=== PATIENT | female | born 1965 ===

== ENCOUNTER 2017-05-24 20:21 | Emergency (ER) | payer MEDICAID ==
[2017-05-24 20:39] VITALS: TEMP 98.1
[2017-05-24] MEDS ORDERED: Sodium Chloride 0.9% 1,000 ML IV STA (21:08)
--- NOTE | 2017-05-24 21:14 | ED PDOC ---
Syncope/Near Syncope/Dizziness Time Seen by Provider: 05/24/17 20:41 Chief Complaint (Nursing): Dizziness/Lightheaded Chief Complaint (Provider): dizzness History Per: Patient History/Exam Limitations: no limitations Onset/Duration Of Symptoms: Days, Gradual Current Symptoms Are (Timing): Still Present Current Symptoms: dizziness Associated Symptoms Preceding Syncopal Episode: Lightheadedness, Worse With Standing Seizure Or Post-ictal Symptoms: None Possible Causative Factor(s): New Medications (metronidazol,omeprazol, amoxicillin) Fall Associated With With Symptoms: No Severity: Moderate Additional History Per: Patient Additional Complaint(s): 52 yo female w/ medical history of HTN presents to ED with Dizziness/ lightheadedness for last 5 days after she starting treatment with metronidazole , amoxicillin and omeprazole for 'stomach infection'. Patient states dizziness is intermittent and described as the room spinning around her. Patient denies fever, chill, abdominal pain, chest pain, sob, recent travel, recent illness, diarrhea, vomiting, nausea. Patient states she feels a general overall weakness as well. No other complaints at this time. PMD: Unknown Past Medical History Reviewed: Historical Data, Nursing Documentation, Vital Signs Vital Signs: Last Vital Signs Temp 98.1 F 05/24/17 20:36 Pulse 80 05/24/17 20:36 Resp 20 05/24/17 20:36 BP 145/88 05/24/17 20:36 Pulse Ox 18 L 05/24/17 20:36 - Medical History PMH: HTN - Surgical History Surgical History: Cholecystectomy - Family History Family History: States: Unknown Family Hx - Living Arrangements Living Arrangements: With Family - Social History Current smoker - smoking cessation education provided: No Ex-Smoker (has not smoked in the last 12 months): No Alcohol: None Drugs: Denies - Immunization History Hx Influenza Vaccination: Yes - Home Medications Home Medications: Ambulatory Orders Medication Instructions Recorded Docusate Sodium [Colace] 100 mg PO DAILY #20 sgl 10/31/13 Enalapril 10/31/13 Multimineral/Multivitamin [Daily 1 tab PO BID #60 tab 10/31/13 Iron] Meclizine [Antivert] 12.5 mg PO Q6H PRN #6 tab 05/24/17 - Allergies Allergies/Adverse Reactions: Allergies Allergy/AdvReac Type Severity Reaction Status Date / Time No Known Allergies Allergy Verified 10/31/13 16:00 Review of Systems ROS Statement: Except As Marked, All Systems Reviewed And Found Negative Constitutional: Positive for: Chills. Negative for: Fever, Sweats Eyes: Positive for: Vision Change ENT: Negative for: Ear Pain, Ear Discharge, Mouth Pain, Mouth Swelling, Throat Pain, Throat Swelling Cardiovascular: Positive for: Light Headedness. Negative for: Chest Pain, Palpitations, Edema Respiratory: Negative for: Cough, Shortness of Breath Gastrointestinal: Positive for: Nausea. Negative for: Vomiting, Abdominal Pain , Diarrhea Genitourinary Female: Negative for: Dysuria Neurological: Positive for: Dizziness. Negative for: Incoordination, Change in Speech, Confusion, Seizures, Altered Mental Status Psych: Negative for: Anxiety, Depression Physical Exam - Reviewed Vital Signs Reviewed: Yes - Physical Exam Appears: Positive for: Well, No Acute Distress Head Exam: Positive for: NORMAL INSPECTION Skin: Positive for: Normal Color Eye Exam: Positive for: Normal appearance, EOMI, PERRL ENT: Positive for: Normal ENT Inspection Neck: Positive for: Normal, Painless ROM, Supple Cardiovascular/Chest: Positive for: Regular Rate, Rhythm, Chest Non Tender. Negative for: Edema, Murmur Respiratory: Positive for: Normal Breath Sounds Gastrointestinal/Abdominal: Positive for: Normal Exam, Soft. Negative for: Tenderness, Distended Extremity: Positive for: Normal ROM. Negative for: Pedal Edema, Calf Tenderness Neurologic/Psych: Positive for: Alert, traffic sergeant II-XII, Oriented - Laboratory Results Result Diagrams: 05/24/17 21:35 05/24/17 21:35 - ECG ECG: Positive for: Interpreted By Me, Viewed By Me ECG Rhythm: Positive for: Normal QRS, Normal ST Segment, Sinus Rhythm Rate: 78 O2 Sat by Pulse Oximetry: 97 Pulse Ox Interpretation: Normal - Progress ED Course And Treament: Time: 2100 Impression: 52 yo female presents with Dizziness/lightheadedness for last 5 days after she starting treatment with metronidazole, amoxicillin and omeprazole. Physical exam unremarkable. Hemodynamically stable. Plan: CBC CMP ECG IV NS Meclizine Reassess Re-evaluation Time: 22:30 Condition: Re-examined, Improved Disposition - Clinical Impression Clinical Impression: Dizziness Counseled Patient/Family Regarding: Studies Performed, Diagnosis, Need For Followup, Rx Given - Disposition Referrals: [facility] [Outside] [facility] [Outside] Disposition: Routine/Home Disposition Time: 22:30 Condition: STABLE Additional Instructions: Follow up with PCP in 2-3 days. Return to ED for worsening symptoms, new symptoms Prescriptions: Meclizine [Antivert] 12.5 mg PO Q6H PRN #6 tab PRN Reason: Dizziness Instructions: Dizziness (ED) Print Language: DIVEHI
[2017-05-24 21:46] LABS: BASO % 0.8 % (0.0-2.0); EOS # 0.5 K/uL (0.0-0.7); EOS % 7.2 % (0.0-4.0); HEMOGLOBIN 13.2 g/dL (12.0-16.0); LYMPH # 2.4 K/uL (1.0-4.3); LYMPH % 38.8 % (20.0-40.0); MEAN CORPUSCULAR HEMOGLOBIN 31.6 pg (27.0-31.0); MEAN CORPUSCULAR HGB CONC 34.3 g/dL (33.0-37.0); MONO # 0.6 K/uL (0.0-0.8); MONO % 9.2 % (0.0-10.0); NEUT # 2.8 K/uL (1.8-7.0); RBC 4.19 Mil/uL (3.80-5.20); RED CELL DISTRIBUTION WIDTH 12.4 % (11.5-14.5); WHITE BLOOD COUNT 6.3 K/uL (4.8-10.8)
[2017-05-24 22:11] LABS: ALB/GLOB RATIO 1.4 (1.0-2.1); ALBUMIN 4.2 g/dL (3.5-5.0); ALT/SGPT 62 U/L (9-52); AST/SGOT 47 U/L (14-36); BLOOD UREA NITROGEN 17 mg/dl (7-17); CALCIUM 9.1 mg/dL (8.4-10.2); GFR AFRICAN-AMERICAN > 60; GFR NON-AFRICAN AMERICAN 59
[2017-05-24 22:53] VITALS: BP 145/93; RESP 16; O2SAT 97
[2017-05-24 23:04] VITALS: PULSE 78
--- NOTE | 2017-05-25 09:46 | CARD ---
APPROVED REPORT EKG Measurement Heart [id number] <Conclusion> Normal sinus rhythm Normal ECG
== END 2017-05-24 22:54 | disposition home or self-care (01) ==
LOC: H.ER 20:21
DX: R42 Dizziness and giddiness (principal); I10 Essential (primary) hypertension; Z87.891 Personal history of nicotine dependence